=== PATIENT | female | born 1955 | race Hispanic/Latino ===

== ENCOUNTER 2021-12-10 12:44 | Outpatient (CLI) | payer MEDICARE, MEDICAID ==
[~2021-12-10 12:44] MED LIST: Iopamidol 370 76% 100 ML VIAL ONE
== END 2021-12-10 12:45 | disposition home or self-care (01) ==
LOC: BICCT 12:44
PROVIDERS: ATTEND Urology
DX: N28.1 Cyst of kidney, acquired (principal); R31.29 Other microscopic hematuria; N28.9 Disorder of kidney and ureter, unspecified
CPT/HCPCS: 74170; 82565; Q9967

== ENCOUNTER 2023-05-15 12:33 | Outpatient (CLI) | payer OTHER, MEDICAID ==
[2023-05-15] MEDS ORDERED: Iopamidol 370 76% 100 ML VIAL ONE (13:03)
== END 2023-05-15 12:34 | disposition home or self-care (01) ==
LOC: BICCT 12:33
PROVIDERS: ATTEND Urology
DX: N28.1 Cyst of kidney, acquired (principal); R31.29 Other microscopic hematuria; Z87.442 Personal history of urinary calculi; N28.89 Other specified disorders of kidney and ureter; K57.30 Diverticulosis of large intestine without perforation or abscess without bleeding; Z90.49 Acquired absence of other specified parts of digestive tract
CPT/HCPCS: 74170; Q9967